=== PATIENT | female | born 1955 | race Caucasian/White ===

== ENCOUNTER → 2020-01-04 | Outpatient (CLI) | payer MEDICARE ==
[~2020-01-04] MED LIST: IBUP600
== END | disposition home or self-care (01) ==
LOC: LAB SHORT 09:04 → PLD 09:04
DX: C44.01 Basal cell carcinoma of skin of lip (principal)
CPT/HCPCS: 88305

== ENCOUNTER → 2020-04-26 | Outpatient (CLI) | payer MEDICARE ==
[2020-04-27 09:38] LABS: Candida species (DNA Probe) Negative (NEGATIVE); G. vaginalis (DNA Probe) Positive (NEGATIVE); T. vaginalis (DNA Probe) Negative (NEGATIVE)
== END | disposition home or self-care (01) ==
LOC: LAB SHORT 15:33 → PLD 15:33
PROVIDERS: Family Medicine
DX: N77.1 Vaginitis, vulvitis and vulvovaginitis in diseases classified elsewhere (principal)
CPT/HCPCS: 87480; 87510; 87660

== ENCOUNTER 2021-01-08 12:15 | Day surgery (SDC) | payer MEDICARE ==
[~2021-01-08] VITALS: Ht 165.1 cm; Wt 77.4 kg
== END 2021-01-08 14:30 | disposition home or self-care (01) ==
LOC: ORSCSDS 12:15
DX: Z12.11 Encounter for screening for malignant neoplasm of colon (principal); D12.3 Benign neoplasm of transverse colon; K64.4 Residual hemorrhoidal skin tags; Z86.010 Personal history of colon polyps
CPT/HCPCS: 88305; J2704; J7120